=== PATIENT | male | born 1960 | race Caucasian/White ===

== ENCOUNTER 2022-07-13 08:56 | Outpatient (REF) | payer SELFPAY ==
--- NOTE | 2022-07-13 10:04 | MHC.AU.HA3 ---
Hearing Instrument Follow-Up- Binaural Date of Visit: 07/13/22 Right Ear: Dayday, Model, Color, Serial Number: Chay Richardson L70-R SN: [id number] Color: Sand Beige Luncheonette Manager Repair Warranty: 09/13/2025 Luncheonette Manager Loss and Damage Warranty: 09/13/2025 [facility] Service Plan: 06/26/2023 Battery Size: Rechargeable Oil Burner Mechanic/Slim Tube: 2P Earmold/Dome/CShell/SlimTip:Currently using Medium closed dome Acrylic c-shell SN: [id number] Osman: 09/13/22 Type of Wax Guard: CeruShield (if using dome) CeruStop (if using c-shell) Dispensed By: [facility] Date of Fittin06/26/2022 Left Ear: Dayday, Model, Color, Serial Number: Chay Levino L70-R SN: [id number] Color: Sand Beige Luncheonette Manager Repair Warranty: 09/13/2025 Luncheonette Manager Loss and Damage Warranty: 09/13/2025 [facility] Service Plan: 06/26/2023 Battery Size: Rechargeable Oil Burner Mechanic/Slim Tube: 2P c-shell has UP manufacturing automation engineer Earmold/Dome/CShell/SlimTip: Currently using Medium closed dome Acrylic c-shell SN:[id number] Osman: 09/13/22 Type of Wax Guard: CeruShield (if using dome) CeruStop (if using c-shell) Dispensed By: [facility] Date of Fittin06/26/2022 Follow-Up Summary: Alfredo reported that he has not worn the hearing aids as he could not fully adjust to them due to the overwhelming sound of his own voice. He reportedly cannot concentrate when he talks. Manually turning them on/off is complicated and difficult. He also reportedly paired them to his cellphone and downloaded the [employer] millie himself; however, the hearing aids reportedly never stay connected which causes confusion and stress because he never knows if he is on the air. He relies on his cell phone for communication at work and with the new hearing aids he reported that was not possible. (Also see printed email from Yazan Ring at [facility] with Alfredo's report on the hearing aids). Explained initially switched to Phonak inside sales professional for integrated c-shell manufacturing automation engineer. Alfredo reported that while he still has an echo of his own voice with his current hearing aids, it was significantly worse with the Phonak hearing aids despite changing acoustic coupling and programming adjustments. Per Yazan, approved to change make/model of hearing aid. Discussed trialing Oticon More 2 miniRITEs using his own earmolds to start. Also recommended battery-powered due to complaint of difficulty manually turning on/off; however, Alfredo again opted for the rechargeable version. Alfredo returned the Phonak hearing aids and microsoft architect and opted to use his old Oticon OPN 1 miniRITE-T hearing aids in the meantime. Recommendations: Ordered Oticon More 2 miniRITE-R to trial with current ear molds. Scheduled fitting on 07/19/2022. Will return Phonak hearing aids pending outcome of trial with Oticon hearing aids. Diagnosis Code(s): Primary Diagnosis: H90.3 Bilateral Sensorineural Hearing Loss Signature: Provider: Jorge A Montelongo, [facility]
== END 2022-07-13 08:57 | disposition home or self-care (01) ==
LOC: HO.HAP 08:56
PROVIDERS: Visit Provider Internal Medicine
DX: Z13.89 Encounter for screening for other disorder (principal)

== ENCOUNTER 2022-07-19 14:26 | Outpatient (REF) | payer SELFPAY ==
--- NOTE | 2022-07-19 16:28 | MHC.AU.HA2 ---
Hearing Instrument Fitting- Adult- Binaural Date of Visit: 07/19/22 Hearing Instruments Dispensed: Right Ear: Make, Model, Color, Serial Number: Oticon More 2 miniRITE-R SN: [id number] Color: Killdeer Brown Portfolio Specialist Repair Warranty: 08/12/2025 Portfolio Specialist Loss and Damage Warranty: 08/12/2025 [facility] Service Plan: 07/19/2023 Battery Size: Rechargeable Business Intern/Slim Tube: 2P Earmold/Dome/CShell/SlimTip: Old Microsonic Canal lock mold Type of Wax Guard: miniFit ProWax Left Ear: Make, Model, Color, Serial Number: Oticon More 2 miniRITE-R SN: [id number] Color: Scout Brown Portfolio Specialist Repair Warranty: 08/12/2025 Portfolio Specialist Loss and Damage Warranty: 08/12/2025 [facility] Service Plan: 07/19/2023 Battery Size: Rechargeable Business Intern/Slim Tube: 2P Earmold/Dome/CShell/SlimTip: Old Microsonic Canal lock mold Type of Wax Guard: miniFit ProWax Summary of Fitting: Fit with new Oticon hearing aids with old Microsonic ear molds. Alfredo was immediately happier with the overall sound quality including the sound of his own voice. Programmed to NAL-NL2 initial fit settings. Did not perform real ear measures as Alfredo was satisfied with sound quality and prefers the hearing aids to be set to his preference. He reported they were slightly too soft; however, he did not want volume increased at this time. The discomfort of his own voice was not completely resolved although he noted significant improvement compared to the Phonak hearing aids. Paired to his cellphone and confirmed successful connection in office. Reviewed care, use, and rechargeability including manually turning on/off, volume control use, and changing wax guards. Recommendations: A hearing instrument follow-up was scheduled. Recommendations (Other): Alfredo has his old Oticon OPN 1 miniRITE-T hearing aids to keep as back up. The Phonak Audeo L70-R hearing aids and plant taxonomy teacher were returned to [employer] for credit. The c-shell earmolds are in the Earmold drawer for future use, if needed. Diagnosis Code(s): Primary Diagnosis: H90.3 Bilateral Sensorineural Hearing Loss Signature: Provider: Jorge A Montelongo, [facility]
== END 2022-07-19 14:27 | disposition home or self-care (01) ==
LOC: HO.HAP 14:26
PROVIDERS: Visit Provider Internal Medicine
DX: Z13.89 Encounter for screening for other disorder (principal)

== ENCOUNTER 2023-11-05 10:06 | Outpatient (REF) | payer SELFPAY | END 2023-11-05 10:07 | disposition home or self-care (01) | LOC: HO.HAP 10:06 | DX: Z13.89 Encounter for screening for other disorder (principal) ==

== ENCOUNTER 2023-11-21 07:55 | Outpatient (REF) | payer SELFPAY | END 2023-11-21 07:56 | disposition home or self-care (01) | LOC: HO.HAP 07:55 | DX: Z13.89 Encounter for screening for other disorder (principal) ==

== ENCOUNTER 2024-02-01 09:27 | Outpatient (REF) | payer SELFPAY | END 2024-02-01 09:28 | disposition home or self-care (01) | LOC: HO.HAP 09:27 | DX: Z13.89 Encounter for screening for other disorder (principal) ==

== ENCOUNTER 2024-02-26 11:25 | Outpatient (REF) | payer SELFPAY | END 2024-02-26 11:26 | disposition home or self-care (01) | LOC: HO.HAP 11:25 | PROVIDERS: Visit Provider Otolaryngology | DX: Z13.89 Encounter for screening for other disorder (principal) ==

== ENCOUNTER 2024-08-05 15:15 | Outpatient (REF) | payer SELFPAY ==
--- NOTE | 2024-08-05 16:58 | MHC.AU.HA3 ---
Hearing Instrument Follow-Up- Binaural Date of Visit: 08/05/24 Right Ear: Make, Model, Color, Serial Number: Oticon More 2 miniRITE-R SN: [id number] Color: Nimitz Brown Opener Verifier Packer Customs Repair Warranty: 08/12/2025 Opener Verifier Packer Customs Loss and Damage Warranty: 08/12/2025 [facility] Service Plan: 07/19/2023 Battery Size: Rechargeable Instructor Modeling/Slim Tube: 4P Earmold/Dome/CShell/SlimTip:Microsonic Canal lock mold Type of Wax Guard: miniFit ProWax Dispensed By: [facility] Date of Fittin07/19/2022 Left Ear: Make, Model, Color, Serial Number: Oticon More 2 miniRITE-R SN: [id number] Color: Nimitz Brown Opener Verifier Packer Customs Repair Warranty: 08/12/2025 Opener Verifier Packer Customs Loss and Damage Warranty: 08/12/2025 [facility] Service Plan: 07/19/2023 Battery Size: Rechargeable Instructor Modeling/Slim Tube: 4P Earmold/Dome/CShell/SlimTip: Microsonic Canal lock mold Type of Wax Guard: miniFit ProWax Dispensed By: [facility] Date of Fittin07/19/2022 Follow-Up Summary: Recently purchased new glasses, bow is significantly thicker than old pair, which pushes HAs too far out causing them to fall off pinna. Reportedly returned for adjustments to glasses without success and has tried accessories to hold HAs to glasses, also without success. Wanted to try different size manager housekeeping. Size 3 too short. Did not have size 5 in stock to try; however, would likely cause DRISCOLL to fall off pinna more easily. Advised best option is to return the place he purchased glasses to see if they can be exchanged for different pair with thinner bow. Alfredo asked for letter to be written explaining situation. Will complete letter and email to Alfredo at his request. Recommendations: Hearing instrument follow-up or maintenance as needed. Please contact our clinic with any questions or concerns. Diagnosis Code(s): Primary Diagnosis: H90.3 Bilateral Sensorineural Hearing Loss Signature: Provider: Jorge A Montelongo, [facility]
--- OUTSIDE RECORDS SUMMARY | 2024-08-05 18:30 | XMS_ITS | Patient Health Record ---
Author Organization [facility] Address [address] [place] [address] Care Team Providers Care Press Puller Name Role Phone Ifeoma Raymond Primary Care Provi lucinda Unavailable MATT HOLDER Unavailable [phone] Allergies No Known Allergies Reason For Referral No Information Medications Medication SIG (Take, Route, Frequency, Duration) Notes Start Date End Date Status Ciclopirox 0.77 % 1 application to eac h fungal toenail Externally Once a day for 90 days Not-Taking Finasteride 5 MG 1 tablet Orally Once a day Not-Taking Tamsulosin HCl 0.4 MG 1 capsule Orally O nce a day Active amLODIPine Besylate 10 MG 1 tablet Orall y Once a day Active Tylenol 8 Hour 650 MG 2 tablets as neede d Orally every 8 hrs Active Wixela Inhub Active Albuterol Sulfate 108 (90 Base) MCG/ACT 1 puff as needed Inhalation every 4 hrs Active Aleve 220 MG 1 tablet with food o r milk as needed Orally every 12 hrs Active Olmesartan Medoxomil 40 MG 1 tablet Orally Once a day Active Pantoprazole Sodium 40 MG 1 tablet Orall y Once a day Active Naproxen 500 MG 1 tablet with food o r milk as needed Orally every 12 hrs Active Problems Problem Type SNOMED Code ICD Code Onset Dates Problem Status W/U Status Risk Notes Problem 52340946293595833 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 Problem 13588547751943315 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) Active confirmed Problem 780970328 Venous insufficiency of both lower extremities (I87.2) Active confirmed Vital Signs Heart Rate 75 /min 11/23/2023 Temperature 97.1 degrees Fahrenheit 11/23/2023 Respiratory Rate 16 /min 11/23/2023 Height 5ft 11in in 11/23/2023 Weight 266.5 lbs 11/23/2023 BMI 37.17 kg/m2 11/23/2023 Encounters Encounter Location Date Provider Diagnosis [facility] [address] [address] 11/23/2023 MATT HOLDER Pain in right foot M79.671 ; Pain in left foot M79.672 ; Arthritis of left subtalar joint M19.072 ; Arthritis of right subtalar joint M19.071 ; Capsulitis of metatarsophalangeal (MTP) joint of left foot M77.52 and Capsulitis of metatarsophalangeal (MTP) joint of right foot M77.51 [facility] [address] [address] 11/28/2023 MATT HOLDER Assessments Encounter Date Diagnosis (ICD Code) Assessment Notes Treatment Notes Treatment Clinical Notes Section Notes 11/23/2023 Pain in right foot (ICD-10 - M79.671) This is an outpatient visit for evaluation and management of an established patient, last seen approximately 2 years ago, which required appropriate review of pertinent medical history, review of any previous imaging, review of all previous records, and examination and decision-making. Time was 30 minutes spent in review of all these facets including face to face discussion with the patient regarding my findings and in discussion of a current and future treatment plan. We discussed he did complete the treatment with Dr. Garrett for the leg swelling. He continues to have pain in both feet. We discussed the x-rays have not changed significantly compared to his last visit 2 years ago. He is having subtalar joint and metatarsophalangeal joint pain bilaterally. We discussed he does have subtalar joint arthritis. We also discussed the capsulitis of the metatarsophalangeal joints. I explained to the patient that metatarsalgia is caused by an inflammation of the capsules surrounding the joints of the toes. I explained that they need an insert in their shoes to help offload the metatarsal heads when they walk to take the pressure off the capsules. The patient is not interested in steroid injections or physical therapy. He currently takes NSAIDs and Tylenol as needed for pain. He did wear braces for the subtalar joint arthritis in the past, but did not find it helpful for the other issues. We discussed custom orthopedic shoes and orthotics. We discussed this option will help stabilize the foot deformity. We discussed that the shoes can be made to fit his work requirements. He states he mainly needs the shoes and the orthotics for when he is at work. RX written for custom orthotics and shoes. List of DME suppliers dispensed to the patient. I recommended the patient contact my office when he receives the shoes and inserts, and we will make a follow-up appointment 4 weeks later to see if any adjustments need to be made. He is in agreement with this plan. 11/23/2023 Pain in left foot (ICD-10 - M79.672) 11/23/2023 Arthritis of left subtalar joint (ICD-10 - M19.072) 11/23/2023 Arthritis of right subtalar joint (ICD-10 - M19.071) 11/23/2023 Capsulitis of metatarsophalangeal (MTP) joint of left foot (ICD-10 - M77.52) 11/23/2023 Capsulitis of metatarsophalangeal (MTP) joint of right foot (ICD-10 - M77.51) Plan Of Treatment Pending Test Test Name Order Date X ray : Foot, left 3v 02/02/2022 X ray : Foot, left 3v 11/23/2023 X ray : Foot, right 3v 02/02/2022 X ray : Foot, right 3v 11/23/2023 Next Appt Details Provider Name:MATT HOLDER, 08/08/2024 09:15:00 AM, [address], [place], [address], Insurance Providers Payer Name Payer Address Payer Phone Subscriber Number Group Number Insured Name Patient Relationship to Insured Coverage Start Date [facility]age End Date [facility] [address] [place] [address] [phone] [id number] Trevor Alfredo Self - patient is the insured Medical (General) History Medical History History ICD Code hypertension epididymitis hearing loss osteoarthritis GERD BPH- Dr. Vallejo had fall/left shoulder pain toe pain/bone spurs- Dr. Zavaleta + COVID 07/2020 tx w/monoclonal ab seasonal and environmental allergies low vitamin D level left knee pain COVID vaccinated X 2 ([place]) and [address] ([place]) Surgical History Surgery Date(Month/Year) appendicitis with appendectomy 1979 colonoscopy 2019 Hospitalization History Reason Date(Month/Year) appendectomy 1979 epididymitis at [facility] 01/2021
--- OUTSIDE RECORDS SUMMARY | 2024-08-05 18:30 | XMS_ITS | Clinical Summary ---
Author Organization [address] [facility] Address [address] [place] [address] Phone Care Team Providers Care Security Technician Name Role Phone Silva Raymond DO Primary Care Pro vider Allergies No known active allergies Medications albuterol HFA (PROAIR HFA ; PROVENTIL HFA ; VENTOLIN HFA) 90 mcg/actuation inhaler Inhale 1 puff by mouth every 4 (four) hours if needed. 4 Active sildenafiL (VIAGRA) 100 mg tablet Take 1 tablet (100 mg total) by mouth if needed. Active tamsulosin (FLOMAX) 0.4 mg 24 hr capsule Take 1 capsule (0.4 mg total) by mouth at bedtime. Active amLODIPine (NORVASC) 10 mg tablet Take 1 tablet (10 mg total) by mouth 1 (one) time each day. Active olmesartan (BENICAR) 40 mg tablet Take 1 tablet (40 mg total) by mouth 1 (one) time each day. for 90 days Active pantoprazole (PROTONIX) 20 mg EC tablet Take 1 tablet (20 mg total) by mouth 1 (one) time each day. 4 Active Wixela Inhub 250-50 mcg/dose diskus inhaler Inhale 1 puff by mouth 2 (two) times a day. 4 Active atorvastatin (LIPITOR) 20 mg tabletIndications: Dyspnea on effort,Coronary artery calcification Take 1 tablet (20 mg total) by mouth 1 (one) time each day. 30 each 1 4 Active aspirin 81 mg EC tablet Take 1 tablet (81 mg total) by mouth 1 (one) time each day. 4 05/08/20 25 Active Active Problems Problem Noted Date Diagnosed Date Chest tightness 05/08/2024 Assessment & Plan (05/08/2024 9:10 AM EST): This symptom I agree sounds musculoskeletal. I am more concerned about his dyspnea on exertion symptoms. Orders: Ambulatory referral to Cardiology ECG 12 lead Nuclear stress test with myocardial perfusion; Future Dyspnea on effort 05/08/2024 Assessment & Plan (05/08/2024 9:10 AM EST): Very difficult to discern if this is cardiac in nature or pulmonary in nature. Most likely given coexisting coughing and wheezing, this is pulmonary in nature however, the to often travel together with similar risk factors. I reviewed the pathophysiology of coronary artery disease highlighting the differences between stable and unstable angina. I reviewed that we have to treat symptoms but also have to treat the underlying disease-which is uncontrolled plaque buildup in the vasculature. I reviewed that in light of recent trials, there is no absolute indication for invasive management initially for stable anginal symptoms. Medical management is often a good starting strategy. However given the need for multiple elective surgeries, I would at least like to further restratification with an exercise nuclear stress test. I will have an exercise to symptom limitation on current medications. If he is unable to achieve a reasonable workload and/or target heart rate, this can be converted to a pharmacologic test. We will try to do this SHAR to accommodate his surgical schedule. Orders: Nuclear stress test with myocardial perfusion; Future atorvastatin (LIPITOR) 20 mg tablet; Take 1 tablet (20 mg total) by mouth 1 (one) time each day. Coronary artery calcification 05/08/2024 Assessment & Plan (05/08/2024 9:10 AM EST): The patient clearly has evidence of at least subclinical coronary disease if not coronary disease with angina. As such, we need to aggressively target risk factors. At this point I would like to start him on atorvastatin 20 mg at bedtime. This can be escalated to maximal tolerated dosing by PCP. I am also starting him on a baby aspirin. Orders: Nuclear stress test with myocardial perfusion; Future atorvastatin (LIPITOR) 20 mg tablet; Take 1 tablet (20 mg total) by mouth 1 (one) time each day. Preop cardiovascular exam 05/08/2024 Assessment & Plan (05/08/2024 9:10 AM EST): Stratifying exercise nuclear stress test as above. Orders: Nuclear stress test with myocardial perfusion; Future Primary hypertension 05/08/2024 Assessment & Plan (05/08/2024 9:10 AM EST): Of note, patient did not take his amlodipine this morning. Will continue current amlodipine and olmesartan. Mixed hyperlipidemia 05/08/2024 Encounters Date Type Department Care Team Description 05/16/2024 Telephone [facility] [address] [place] [address] Silva Hunt, Medical Records 05/15/2024 Telephone [facility] [address] [place] [address] Doris Blackwood MD 05/09/2024 8:30 AM EST Ancillary Procedure [facility] - [address] [place] [address] Chest tightness; Dyspnea on effort; Coronary artery calcification; Preop cardiovascular exam 05/08/2024 8:20 AM EST Office Visit [facility] Cardiology [facility] [address] [place] [address] Doris Blackwood MD Dyspnea on effort (Primary Dx); Chest tightness; Coronary artery calcification; Preop cardiovascular exam; Primary hypertension from Last 3 Months Surgical History Surgery Date Site/Laterality Comments MASS EXCISION PROCEDURE: HISTORICAL EXCISION OF MASS; COMMENT: right neck as a child APPENDECTOMY PROCEDURE: HISTORICAL APPENDECTOMY COLONOSCOPY 02/07/13 PROCEDURE: HISTORICAL COLONOSCOPY; COMMENT: Small polyp, not recoverd; hemorrhoids. Repeat in 5 yrs OTHER SURGICAL HISTORY PROCEDURE: NASAL ENDOSCOPY, POLYPECT; COMMENT: Approx age 22's Medical History Medical History Date Comments BPH (benign prostatic hyperplasia) 04/18/2017 DX:BPH (benign prostatic hyperplasia) Anxiety 04/18/2017 DX:Anxiety GERD (gastroesophageal reflux disease) 7 DX:GERD (gastroesophageal reflux disease) Dyslipidemia 10/13/2014 DX:Dyslipidemia Elevated PSA 10/13/2014 DX:Elevated PSA HTN (hypertension) 11/05/2012 DX:HTN (hyper tension) Joint pain 09/17/2008 DX:Joint pain Microscopic hematuria 10/13/2014 DX:Microsc opic hematuria Migraine 09/17/2008 DX:Migraine; COM MENT: Chronic DRISCOLL, right sided, feels like eye pressure, 4 times a month, no nausea, no photophobia Vitamin D deficiency 10/13/2014 DX:Vitamin D deficiency Colon polyp 04/18/2017 DX:Colon polyp Prediabetes DX:Prediabetes Allergic rhinitis 10/10/2018 DX:Allergic rh initis Bilateral hearing loss 10/10/2018 DX:Bilate ral hearing loss; COMMENT: From 21 years of age, wears hearing aids. Snoring 05/24/2017 DX:Snoring; COMM ENT: 05/20/2017 Home Sleep Study did not reveal sleep apnea. History of COVID-19 09/07/2020 DX:History o f COVID-19; COMMENT: 08/20/2020. Received monoclonal antibodies 08/25 COPD (chronic obstructive pu lmonary disease) ([facility] [place]) Hearing loss, bilateral Osteoarthritis Family History Medical History Relation Name Comments CABG Father Hypertension Father [place] Other Father Hypertension Mother diabetes, polym yalgia, glaucoma, CAD, during open heart surg@62 Diabetes Sister CAD, PVD Rheum arthritis Uncle Blindness Neg Hx Cataracts Neg Hx Macular degeneration Neg Hx Strabismus Neg Hx Relation Name Status Comments Father htn, [place] Mother Alive htn Sister Uncle Social History Tobacco Use Types Packs/Day Years Used Date Smoking Tobacco: Former Cigarettes Q uit: 05/28/1998 Smokeless Tobacco: Never Tobacco Cessation:Counseling Given: Not Answered Alcohol Use Standard Drinks/Week Comments Yes 0 (1 standard drink = 0.6 oz pur e alcohol) Sex and Gender Information Value Date Recorded Sex Assigned at Not on file Legal Sex Male 11:43 PM EST Gender Identity Not on file Sexual Orientation Not on file Obstetrics History Last Filed Vital Signs Vital Sign Reading Time Taken Comments Blood Pressure 132/89 05/09/2024 8:36 AM EST Pulse 62 05/08/2024 8:17 AM EST Temperature - - Respiratory Rate - - Oxygen Saturation 96% 05/08/2024 8:17 AM EST Inhaled Oxygen Concentration - - Weight 121 kg (266 lb) 05/09/2024 8:22 AM EST Height 180.3 cm (5' 11 ) 05/09/2024 8:22 AM EST Body Mass Index 37.1 05/09/2024 8:22 AM EST Plan of Treatment Health Maintenance Due Date Last Done Comments Pneumococcal Vaccine: 50+ Years (1 of 1 - PCV) 2012 Zoster Vaccines (1 of 2) 2012 Cholesterol Screening (Lipid Panel) 05/06/2022 Colorectal Cancer Screening: Colonoscopy 05/06/2022 Depression Screening 05/06/2022 HIV Screening 05/06/2022 Hepatitis C Screening 05/06/2022 Social Influencers of Health Screening 05/06/2022 Hypertension/CHF/CAD Annual BMP Blood Test 05/12/2022 DTaP,Tdap,and Td Vaccines (2 - Td or Tdap) 10/22/2022 10/22/2012 COVID-19 Vaccine (4 - 2023-2 5 season) 2024 08/10/2021, 03/02/2021, 02/09/2021 Influenza Vaccine (#1) 2024 RSV Immunization Patients 60 + Years Old (1 - 1-dose 75+ series) 2037 HIB Vaccines Aged Out No longer eligi ble based on patient's age to complete this topic HPV Vaccines Aged Out No longer eligi ble based on patient's age to complete this topic Hepatitis A Vaccines Aged Out No long er eligible based on patient's age to complete this topic Hepatitis B Vaccines Aged Out No long er eligible based on patient's age to complete this topic IPV Vaccines Aged Out No longer eligi ble based on patient's age to complete this topic MMR Vaccines Aged Out No longer eligi ble based on patient's age to complete this topic Meningococcal ACWY Vaccine Aged Out N o longer eligible based on patient's age to complete this topic Meningococcal B Vacine Aged Out No lo nger eligible based on patient's age to complete this topic Pneumococcal Vaccine: Pediatrics (0 to 5 Years) and At-Risk Patients (6 to 64 Years) Aged Out No longer eligible b ased on patient's age to complete this topic RSV Immunization Patients Under 20 months Aged Out No longer eligible b ased on patient's age to complete this topic Varicella Vaccines Aged Out No longer eligible based on patient's age to complete this topic Procedures Procedure Name Priority Date/Time Associated Diagnosis Comments NM EXERCISE STRESS TEST W/ MYOCARDIAL PERFUSION STAT 05/09/2024 10:25 AM EST Chest tightness Dyspnea on effort Coronary artery calcification Preop cardiovascular exam ECG 12-LEAD Routine 05/08/2024 8:22 AM EST Chest tightness ECG OUTSIDE Routine 05/07/2024 4:25 PM EST from Last 3 Months Results * NM EXERCISE STRESS TEST W/ MYOCARDIAL PERFUSION (05/09/2024 10:25 AM EST) Exercise/inject ion duration (min) 6 CV PACS STRESS Exercise/inject ion duration (sec) 30 CV PACS STRESS Peak SBP 182 mmHg CV PACS STRESS Peak DBP 74 mmHg CV PACS STRESS Peak HR 146 bpm CV PACS STRESS Baseline HR 69 bpm CV PACS STRESS Baseline SBP 132 mmHg CV PACS STRESS Baseline DBP 89 mmHg CV PACS STRESS Estimated workload 8.5 METS CV PACS STRESS Percent HR 92 % CV PACS STRESS Rate Pressure Product 26,572.0 mmHg*bpm CV PACS STRESS Target HR [address] PACS STRESS [address] Depression (mm) 0 mm CV PACS STRESS BSA 2.46 m2 CV PACS STRESS TID 1.01 CV PACS STRESS Nuc Stress EF 66 % CV PAC S STRESS Nuc Rest EF 71 % CV PACS STRESS Anatomical Region Laterality Modality Nuclear Medicine 05/09/2024 9:14 AM EST 05/09/2024 9:50 AM EST Narrative 05/09/2024 6:37 PM EST ?Stress ECG was normal. ?Exercise stress test was performed. Patient reported no symptoms during the stress test. Exercise capacity was average. Normal blood pressure response. ?Normal myocardial perfusion study. ??Diaphragmatic attenuation identified on raw images is resolved with attenuation correction and most likely represents artifact ?LV perfusion is normal. ?Normal left ventricular function post-stress. Stress ejection fraction is 66%. Stress Findings A Jack protocol stress test was performed. Overall, the patient's exercise capacity was average. The patient reached stage 3. Total stress time was 6 min and 30 sec. Blood pressure demonstrated a normal response. Heart rate demonstrated a normal response. The patient reported no symptoms during the stress test. ECG 64-year-old male patient with history of coronary artery calcifications, hypertension and hyperlipidemia. Patient presents today for stress testing to evaluate atypical chest pain and exertional dyspnea. Baseline ECG is normal. The ECG shows normal sinus rhythm. The ECG axis is normal. There were no arrhythmias during stress. There is no ST segment changes during stress. There were no arrhythmias during recovery. The result of the stress ECG was negative for ischemia. Nuclear Study Quality Study technique: MPI, SPECT, multi, rest and stress, 1 day. Overall image quality is good. CT attenuation correction was utilized. No radiopharmaceutical dose was extravasated. The time from injection to rest imaging is 35 mins. The time from injection to stress imaging is 20 mins. Perfusion Defect Conclusion There is no evidence of transient ischemic dilation (TID). Stress Function Comments Left ventricular systolic function post-stress is normal. Stress ejection fraction is 66%. Rest Function Comments Resting ejection fraction was 71%. Stress Combined Conclusion Normal myocardial perfusion study. Diaphragmatic attenuation identified on uncorrected images. Attenuation correction resolves the inferior defect which most likely represents artifact CT Findings No coronary calcification identified on CAT scan Perfusion Comments LV perfusion is normal. There is no evidence of inducible ischemia. Wall Scoring Stress Score Index: 1.00 The left ventricular wall motion is normal. Perfusion Scoring Resting Summed Score: 0 Percent Normal: 0.00% The left ventricular perfusion is normal. Perfusion Scores: SRS Score: 0 Percentage Abnormal: 0.00% Perfusion Scores: SSS Score: N/A Percentage Abnormal: N/A Perfusion Scores: SDS Score: N/A Percentage Abnormal: N/A us Doris Blackwood MD CV STRESS PROCEDURES Final Resu lt * ECG 12 lead (05/08/2024 8:22 AM EST) Ventricular Rate ECG 62 BPM GEMUSE Atrial Rate 62 BPM GEMUSE P-R Interval 176 ms GEMUSE QRS Duration 90 ms GEMUSE Q-T Interval 394 ms GEMUSE QTc 399 ms GEMUSE P Wave Grass Range 65 degrees GEMUSE R Grass Range 68 degrees GEMUSE T Grass Range 23 degrees GEMUSE ECG Interpretation Normal sinus rhythm Nonspecific ST and T wave abnormality When compared with ECG of 17-NOV-2015 06:54, No significant change was found Confirmed by DORIS BLACKWOOD ([id number]) on 05/09/2024 2:43:45 PM GEMUSE 05/08/2024 8:22 AM EST 05/09/2024 2:43 PM EST us Doris Blackwood MD ECG ORDERABLES Final Result GEMUSE * ECG-Outside (05/07/2024 4:25 PM EST) Silva Raymond DO ECG ORDERABLES F inal Result from Last 3 Months Insurance [facility] Care Teams Security Technician Relationship Specialty Start Date End Date Silva Raymond DO [facility] [address] [place] [id number] PCP - General Internal Medicine 05/08/24
--- OUTSIDE RECORDS SUMMARY | 2024-08-05 18:30 | XMS_ITS | Patient Health Record ---
[facility] Address [address] [place] [address] Care Team Providers Care Piped Buttonhole Machine Operator Name Role Phone Silva Raymond Primary Care Provid er Unavailable Mayra Jarvis Unavailable [phone] Silva Garza Unavailable Stefany vailable Allergies Allergen (clinical drug ingredient) Drug/Non Drug Allergy documented on EMR Reaction Allergy Type Onset Date Status Seasonale stuffy nose, watery eyes, tiredness Drug Allergy Active Reason For Referral No Information Medications Medication SIG (Take, Route, Frequency, Duration) Notes Start Date End Date Status Pantoprazole Sodium 40 MG 1 tablet Orall y Once a day for 30 day(s) Active Tylenol Active Naproxen 500 MG 1 tablet with food o r milk as needed Orally every 12 hrs Active Acetaminophen Unknow n Finasteride 5 MG 1 tablet Orally Once a day for 30 day(s) Active Methocarbamol 750 MG 1 tablet Orally jeannette ry 4 hrs for 30 day(s) Active Olmesartan Medoxomil-HCTZ 40-12.5 MG 1 tablet Orally Once a day for 30 day(s) Active Tamsulosin HCl 0.4 MG 1 capsule Orally O nce a day for 30 day(s) Active Turmeric Active Medrol 4 MG 1 tablet with food o r milk Orally every 12 hrs for 30 day(s) Unknown Vitamin C Active Sildenafil Citrate 100 MG 1 tablet as ne eded Orally Once a day for 30 day(s) Unknown zzzCompression Stockings 20-30mm Hg . . . for . Active amLODIPine Besylate 10 MG 1 tablet Orall y Once a day for 30 day(s) Active Social History Tobacco Use: Social History Observation Description Date Details (start date - stop date) Former Smoker NA - NA Tobacco Use/Smoking Question Answer Notes Are you a: former smoker Additional Findings: Tobacco Non-User Ex-light c igarette smoker (1-9/day) Alcohol Screen Question Answer Notes Did you have a drink contain ing alcohol in the past year? Yes How often did you have a dri nk containing alcohol in the past year? Monthly or less (1 point) Points 1 Interpretation Negative Tobacco use other than smoking: Question Answer Notes Are you an other tobacco user? No Problems Problem Type SNOMED Code ICD Code Onset Dates Problem Status W/U Status Risk Notes Problem 27910566 Type 2 diabetes mellitus with polyneuropathy (E11.42) Active confirmed Plan Of Treatment Pending Test Test Name Order Date X ray : Foot, left 3V 06/22/2021 X ray : Foot, right 3V 06/22/2021 Insurance Providers Payer Name Payer Address Payer Phone Subscriber Number Group Number Insured Name Patient Relationship to Insured Coverage Start Date Coverage End Date [facility] [address] [place] [address] [id number] Alfredo Murray Self - patient is the insured Medical (General) History Medical History History ICD Code Allergic rhinitis Anxiety Arthritis Back,Hip,and Knee pain Benign prostatic hyperplasia (BPH) Colonic polyps Dyslipidemia Elevated PSA Gastroesophageal reflux disease (GERD) B/L Hearing loss Hypertension Migraines Microscopic Hematuria Numbness Prediabetic Sinus conditions Vitamin D deficiency Surgical History Surgery Date(Month/Year) appendectomy colonoscopy excision of mass R neck as a child nasal polypectomy
--- OUTSIDE RECORDS SUMMARY | 2024-08-05 18:31 | XMS_ITS ---
Author Organization [facility] Address [address] [address] Care Team Providers Care Build Automation Engineer Name Role Phone Ifeoma Raymond Primary Care Provi MATT Gilmore [phone] REASON FOR VISIT recommendations Encounters Encounter Location Date Provider Diagnosis [facility] [address] [address] 11/28/2023 MATT HOLDER Plan Of Treatment Next Appt Details Provider Name:MATT HOLDER, 08/08/2024 09:15:00 AM, [address] [address], [place], [address], Progress Notes * Alfredo MURRAYDOB:1960 ( 63 yo M)Acc No.[id number]:11/28/2023 Patient:?Alfredo MURRAY :1960???Age:63 Y???Sex:Male Address:[address] [place] [phone] * true * Date:? Generated for Printi brooke/Sami/eTransmitting on:?08/05/2024 06:30 PM EDT
== END 2024-08-05 15:16 | disposition home or self-care (01) ==
LOC: HO.HAP 15:15
PROVIDERS: Visit Provider Internal Medicine
DX: Z13.89 Encounter for screening for other disorder (principal)